=== PATIENT | female | born 1950 | race Caucasian/White ===

== ENCOUNTER 2017-05-20 16:24 | Outpatient (CLI) | payer MEDICARE ==
[2017-05-24 07:46] LABS: TEST RESULT REPORT (())
[2017-05-26 00:01] LABS: HSV 1 IGG INDEX 3.74 INDEX (()); HSV 1/2 IGM INDEX <0.90 INDEX (()); HSV 2 IGG INDEX <0.90 INDEX (())
== END 2017-05-20 16:25 | disposition home or self-care (01) ==
LOC: LAB.F 16:24
PROVIDERS: ATTEND Nurse Practitioner Family
DX: N76.0 Acute vaginitis (principal)
CPT/HCPCS: 36415; 81599; 86592; 86694; 86695; 86696; 86803; 87389